=== PATIENT | female | born 1990 | race African-American/Black ===

== ENCOUNTER 2017-03-13 13:20 | Emergency (ER) | payer MEDICAID ==
[~2017-03-13] VITALS: Ht 167.6 cm; Wt 79.4 kg
[~2017-03-13 13:20] MED LIST: AUGMENTIN 875-1 EAC1 ORAL; BLEPH-105 ML LEFT EYE; BLEPHAMIDE EYE D5 ML LEFT EYE; GENTAMICIN SULF15 G2 TOPIC; IBUPROFEN600 MG ORAL; NKM; ZOFRAN ODT4 MG ORAL
[2017-03-13] MEDS ORDERED: BACITRACIN-P28.35 GM TP (14:15)
[2017-03-13] MEDS ORDERED: HYDROCORTISONE30 G2 TP (14:15)
[2017-03-13] MEDS ORDERED: BENADRYL ALLERG25 M1 PO (14:15)
--- NOTE | 2017-03-13 14:17 | Emergency Room Report ---
History of Present Illness General Chief Complaint: General Complaint Source: Patient Present Illness HPI 26-year-old female presents to the emergency department complaining of moderately itching lesions on the left thigh x2 days with some swelling. Patient denies erythema, fevers, or tender lymph nodes, open wounds or bleeding. Pt reports burning sensation that is 5/10 in severity localized to where the insect bites are. Denies lesions/rashes elsewhere on the body. Denies new medications or body washes or creams. Denies swelling of the lips, tongue , throat or airway. Denies wheezing, or shortness of breath. Denies recent travel , recent illness or ill contacts. denies blisters, oral lesions, or sloughing of the skin. Denies CP, Palpitations, LOC, AMS, dizziness, Changes in Vision, Sensation, paresthesias, or a sudden severe headache. Allergies: Coded Allergies: No Known Allergies (Unverified , 05/25/15) Patient History Past Medical History: see triage record Past Surgical History: none Pertinent Family History: none Last Menstrual Period: Two weeks ago Now: No Immunizations: UTD - tdap in 2017 Reviewed Nursing Documentation: PMH: Agreed, PSxH: Agreed Nursing Documentation-PMH Past Medical History: No Stated History Review of Systems All Other Systems: negative except mentioned in HPI Physical Exam Vital Signs Date Time Temp Pulse Resp B/P (MAP) Pulse Ox O2 Delivery O2 Flow Rate FiO2 03/13/17 13:52 98.2 105 16 115/81 99 Room Air Sp02 EP Interpretation: reviewed, normal General Appearance: no apparent distress, alert, GCS 15, non-toxic Head: normocephalic, atraumatic Eyes: bilateral eye normal inspection, bilateral eye PERRL ENT: hearing grossly normal, normal pharynx, no angioedema, normal voice, other - no swelling of the lips or tongue, no oral lesions noted. Neck: full range of motion, supple/symm/no masses Respiratory: lungs clear, normal breath sounds, no wheezing, speaking full sentences Cardiovascular #1: regular rate, rhythm, normal capillary refill Musculoskeletal: back normal, gait/station normal, normal range of motion, non- tender Neurologic: alert, oriented x3, responsive, motor strength/tone normal, sensory intact, normal gait, speech normal Skin: normal color, warm/dry, well hydrated, rash - three discrete papules on the right thigh each approximately 0.25 cm with less than 1 cm surrounding induration, no erythema, no blisters, no vesicles, no crusting, d/c or increased temperature to palpation. one is scabbed from excoriation. Lymphatic: no adenopathy Medical Decision Making PA Attestation Dr. Daly is my supervising Physician whom patient management has been discussed with. Diagnostic Impression: Primary Impression: Insect bite Qualified Codes: W57.XXXA - Bitten or stung by nonvenomous insect and other nonvenomous arthropods, initial encounter ER Course 26-year-old female presents to the emergency department complaining of moderately itching lesions on the left thigh x2 days with some swelling. Patient denies erythema, fevers, or tender lymph nodes, open wounds or bleeding. Pt reports burning sensation that is 5/10 in severity localized to where the insect bites are. Denies lesions/rashes elsewhere on the body. Denies new medications or body washes or creams. Denies swelling of the lips, tongue , throat or airway. Denies wheezing, or shortness of breath. Denies recent travel , recent illness or ill contacts. denies blisters, oral lesions, or sloughing of the skin. Denies CP, Palpitations, LOC, AMS, dizziness, Changes in Vision, Sensation, paresthesias, or a sudden severe headache. Ddx considered but are not limited to cellulitis, scabies, insect bites, tic bites, spider bites, contact dermatitis, Drug reaction, allergic reaction, fungal infection, lice. Vital signs: are WNL, pt. is afebrile H&PE are most consistent with insect bites with localized reaction, no evidence of infection at this time, no evidence to suggest impending airway compromise or anaphylaxis at this time. ORDERS: none required at this time, the diagnosis is clinical ED INTERVENTIONS: None required at this time. DISCHARGE: At this time pt. is stable for d/c to home. Will provide printed patient care instructions, and any necessary prescriptions. Care plan and follow up instructions have been discussed with the patient prior to discharge. Last Vital Signs Date Time Temp Pulse Resp B/P (MAP) Pulse Ox O2 Delivery O2 Flow Rate FiO2 03/13/17 13:52 98.2 105 16 115/81 99 Room Air Disposition: HOME, SELF-CARE Condition: Stable Scripts Bacitracin/Polymyxin B Sulfate (BACITRACIN-POLYMYXIN OINTMENT) 28.35 Gm Oint...g. 1 APPLIC TP BID, #28.3 GM Prov: Daksha Maynard 03/13/17 Hydrocortisone (Hydrocortisone Cream 2.5%) Y Cream.appl 1 APPLIC TP BID, #28.3 GM Prov: Daksha Maynard 03/13/17 Diphenhydramine Hcl (BENADRYL ALLERGY) 25 Mg Tablet 25 MG PO Q6HR Y for Itching, #20 TAB Prov: Daksha Maynard 03/13/17 Patient Instructions: Insect Bite, [id number] Additional Instructions: Take medications as directed. Follow up with a Primary Care Provider in 3-5 days, even if your symptoms have resolved. --Please review list of primary care clinics, if you do not already have a primary care provider Return sooner to ED if new symptoms occur, or current symptoms become worse. Do not drink alcohol, drive, or operate heavy machinery while taking Benadryl as this may cause drowsiness. - Please note that this Emergency Department Report was dictated using [employer] operator technology software, occasionally this can lead to erroneous entry secondary to interpretation by the dictation equipment. Daksha Maynard Mar 13, 2017 14:17
[2017-03-13 14:30] VITALS: BP 101/71
== END 2017-03-13 14:35 | disposition home or self-care (01) ==
LOC: EMR 13:50
DX: S70.361A Insect bite (nonvenomous), right thigh, initial encounter (principal); W57.XXXA Bitten or stung by nonvenomous insect and other nonvenomous arthropods, initial encounter; L29.9 Pruritus, unspecified
CPT/HCPCS: 99283

== ENCOUNTER 2017-06-18 11:35 | Emergency (ER) | payer MEDICAID ==
[~2017-06-18] VITALS: Ht 167.6 cm; Wt 90.7 kg
[~2017-06-18 11:35] MED LIST changes: +BACITRACIN-P28.35 GM TP; +BENADRYL ALLERG25 M1 PO; +HYDROCORTISONE30 G2 TP
[2017-06-18 12:00] VITALS: BP 125/78
[2017-06-18] MEDS ORDERED: BACITRACIN-P28.35 GM TP (12:14)
--- NOTE | 2017-06-18 12:15 | Emergency Room Report ---
History of Present Illness General Chief Complaint: General Complaint Source: Patient Present Illness HPI 26 yo female patient presents to ER complaining of "lundberg and fibers shooting out of her skin". Reports pain when this occurs; describes pain as sharp and brief; denies radiation of pain. Denies pruritis, burning sensation, bleeding, open wounds. Denies symptoms currently. States it occurred last night; began occurring 2 months ago. 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 Denies contacts with similar symptoms. Denies fever, chest pain, SOB, nausea, vomiting, diarrhea. Reports history of drug use and smoking. Allergies: Coded Allergies: No Known Allergies (Unverified , 05/25/15) Patient History Past Medical History: see triage record Social History: Reports: smoking, alcohol use, drug use Last Menstrual Period: 06/02/17 Reviewed Nursing Documentation: PMH: Agreed, PSxH: Agreed Nursing Documentation-PMH Past Medical History: No Stated History Review of Systems All Other Systems: negative except mentioned in HPI Physical Exam Vital Signs Date Time Temp Pulse Resp B/P (MAP) Pulse Ox O2 Delivery O2 Flow Rate FiO2 06/18/17 11:40 98.1 99 18 125/78 98 Room Air 98.1 Sp02 EP Interpretation: reviewed, normal General Appearance: well appearing, no apparent distress, alert, GCS 15, non- toxic Head: normocephalic, atraumatic Eyes: bilateral eye normal inspection, bilateral eye PERRL ENT: hearing grossly normal, normal pharynx, normal voice, uvula midline, moist mucus membranes Neck: normal inspection, full range of motion, no bony tend Respiratory: normal inspection, lungs clear, normal breath sounds, no rhonchi, no respiratory distress, no retraction, no accessory muscle use, no wheezing, speaking full sentences Cardiovascular #1: regular rate, rhythm Gastrointestinal: normal bowel sounds, non tender, soft, no mass, no organomegaly, non-distended, no guarding, no rebound Musculoskeletal: back normal, digits/nails normal, gait/station normal, normal range of motion Neurologic: alert, oriented x3, responsive, motor strength/tone normal, normal gait Psychiatric: mood/affect normal Skin: normal color, no rash, warm/dry, palpation normal, well hydrated, normal turgor, other - no vesicles, no blisters, no ulcers, no urticaira, no maculopapular rash, no erythema, no edema, no skin discoloration Lymphatic: no adenopathy Medical Decision Making PA Attestation Dr. Arce is my supervising Physician whom patient management has been discussed with. Diagnostic Impression: Primary Impression: Skin complaints ER Course Pt. presents to the ED c/o "fibers shooting from skin". Ddx considered but are not limited to rash, cellulitis, abscess, atopic dermatitis, uticaria, pustules, herpes, folliculitis, shingles. Vital signs: are WNL, pt. is afebrile Benign physical exam. No signs of skin condition at sites of "fibers shooting" per patient. ORDERS: None required at this time, the diagnosis is clinical ED INTERVENTIONS: None required at this time. DISCHARGE: -Rx provided for Bacitracin At this time pt. is stable for d/c to home. Patient is resting comfortably, in no acute distress, nontoxic appearing. Will provide printed patient care instructions, and any necessary prescriptions. Patient instructed to use topical bacitracin on areas of skin that may become infected. Care plan and follow up instructions have been discussed with the patient prior to discharge. Patient instructed to follow-up with primary care provider in 3 - 5 days and discuss further referral to grain cleaner and /or mental health professional. Patient questions asked and answered. ER precautions given. Patient instructed to return to ER immediately for any new or worsening of symptoms including but not limited to increasing SOB, persistent fever, intractable vomiting, calf pain. Last Vital Signs Date Time Temp Pulse Resp B/P (MAP) Pulse Ox O2 Delivery O2 Flow Rate FiO2 06/18/17 11:40 98.1 99 18 125/78 98 Room Air 98.1 Disposition: HOME, SELF-CARE Condition: Stable Scripts Bacitracin/Polymyxin B Sulfate (BACITRACIN-POLYMYXIN OINTMENT) 28.35 Gm Oint...g. 1 APPLIC TP BID for 7 Days, GM Prov: Jose Alfredo Strange P.Elizabeth. 06/18/17 Additional Instructions: Followup with primary care provider in 3 -5 days to discuss further treatment and referral to dermatology. Discuss need for psych consult for Morgellon's diagnosis. Take medications as directed. Patient questions asked and answered. ER precautions given, patient instructed to return to ER immediately for any new or worsening of symptoms. Jose Alfredo Strange Jun 18, 2017 12:15
[2017-06-18 12:30] VITALS: BP 125/78
== END 2017-06-18 12:32 | disposition home or self-care (01) ==
LOC: EMR 12:23
DX: L98.9 Disorder of the skin and subcutaneous tissue, unspecified (principal); F17.200 Nicotine dependence, unspecified, uncomplicated; F19.10 Other psychoactive substance abuse, uncomplicated; F10.10 Alcohol abuse, uncomplicated
CPT/HCPCS: 99283